=== PATIENT | female | born 1935 | race Caucasian/White ===

== ENCOUNTER 2019-11-15 18:35 | Emergency (ER) | payer MEDICARE ==
[2019-11-15 20:11] LABS: ALBUMIN 3.2 g/dL (3.5-5.0); ALKALINE PHOSPHATASE 61 U/L (38-126); ASPARTATE AMINO TRANSFERASE 42 U/L (14-36); BILIRUBIN,TOTAL 0.9 mg/dL (0.2-1.3); BLOOD UREA NITROGEN 12 mg/dL (7-20); CALCIUM 8.7 mg/dL (8.4-10.2); CARBON DIOXIDE 26 mmol/L (22-30); CHLORIDE 112 mmol/L (98-107); GLUCOSE 101 mg/dL (75-110); POTASSIUM 3.6 mmol/L (3.6-5.0); TOTAL PROTEIN 5.7 g/dL (6.3-8.2)
[2019-11-15 20:12] LABS: ABSOLUTE EOSINOPHILS # (AUTO) 0.1 10^3/uL (0.0-0.6); ABSOLUTE LYMPHOCYTES (AUTO) 1.2 10^3/uL (0.5-4.7); ABSOLUTE MONOCYTES (AUTO) 0.6 10^3/uL (0.1-1.4); ABSOLUTE NEUT (AUTO) 4.8 10^3/uL (1.7-8.2); BASOPHILS % (AUTO) 0.6 % (0-2); HEMATOCRIT 35.8 % (36.0-47.0); HEMOGLOBIN 12.2 g/dL (12.0-15.5); LYMPHOCYTES % (AUTO) 18.2 % (13-45); MEAN CORPUSCULAR HEMOGLOBIN 30.6 pg (27.0-33.4); MEAN CORPUSCULAR HGB CONC 34.1 g/dL (32.0-36.0); MEAN CORPUSCULAR VOLUME 90 fl (80-97); MONOCYTES % (AUTO) 9.3 % (3-13); PLATELET COUNT 243 10^3/uL (150-450); RED BLOOD COUNT 3.98 10^6/uL (3.72-5.28); RED CELL DISTRIBUTION WIDTH 14.6 % (11.5-14.0); SEGMENTED NEUTROPHILS % (AUTO) 70.9 % (42-78); TOTAL CELLS COUNTED % (AUTO) 100 %; WHITE BLOOD COUNT 6.7 10^3/uL (4.0-10.5)
[2019-11-15 20:17] LABS: ANION GAP 2 (5-19)
[2019-11-15] MEDS ORDERED: NORMAL SALINE 1000 ML 1,000 ML IV ONE (23:16)
--- NOTE | 2019-11-16 00:14 | RADIOLOGY REPORT (SQ) ---
CT of the head: 11/15/2019 11:12 PM CDT HISTORY: 83-year-old patient with altered mental status. COMPARISON: None available TECHNIQUE: Multiple axial contiguous images were obtained through the head without intravenous contrast administered. This exam was performed according to our departmental dose-optimization program, which includes automated exposure control, adjustment of the mA and/or KV according to the patient's size and/or use of iterative reconstruction technique. FINDINGS: The ventricles and cerebral sulci demonstrate mild prominence, consistent with cerebral atrophy. There are mild periventricular hypodensities, suggestive of periventricular white matter changes. The fragoso-white matter differentiation is within normal limits. Both orbits appear unremarkable. The mastoid air cells appear clear. The visualized paranasal sinuses appear clear. The calvarium is intact. No extra-axial fluid collection is seen. No midline shift or mass effect is apparent. There are no findings to suggest acute intracranial hemorrhage. IMPRESSION: 1. No acute intracranial hemorrhage is seen. 2. Mild cerebral atrophy and periventricular white matter changes are seen.
--- NOTE | 2019-11-16 00:15 | RADIOLOGY REPORT (SQ) ---
AP Portable chest: 11/15/2019 11:13 PM CDT History: 83-year old patient with altered mental status. Comparison: None available Findings: The cardiomediastinal silhouette is enlarged. No pneumothorax is seen. No discrete pleural effusion is apparent. There are airspace opacities seen within the left midlung and right lung base. Atherosclerotic calcifications are seen at the aortic arch. Impression: There are airspace opacities seen at the lung bases and left midlung. These may represent atelectasis or infection.
[2019-11-16 03:22] LABS: APPEARANCE,URINE CLOUDY; BILIRUBIN,URINE NEGATIVE (NEGATIVE); GLUCOSE, URINE NEGATIVE (NEGATIVE); KETONES,URINE 20 mg/dL (NEGATIVE); PROTEIN,URINE 30 mg/dL (NEGATIVE); URINE SPECIFIC GRAVITY 1.029; UROBILINOGEN,URINE NEGATIVE mg/dL (<2.0)
[2019-11-16 03:25] LABS: COLOR,URINE DARK YELLOW
[2019-11-16 03:34] LABS: URINE AMPHETAMINES SCREEN NEGATIVE; URINE BARBITURATES SCREEN NEGATIVE; URINE BENZODIAZEPINES SCREEN NEGATIVE; URINE COCAINE SCREEN NEGATIVE; URINE MARIJUANA (THC) SCREEN NEGATIVE; URINE METHADONE SCREEN NEGATIVE; URINE PHENCYCLIDINE SCREEN NEGATIVE
--- NOTE | 2019-11-16 08:06 | EKG REPORT ---
SEVERITY:- ABNORMAL ECG - ATRIAL FIBRILLATION, V-RATE 71-84 PROBABLE LEFT VENTRICULAR HYPERTROPHY BORDERLINE PROLONGED QT INTERVAL : Confirmed by: Jasmeet Felder 16-Nov-2019 08:06:01
--- NOTE | 2019-11-16 17:33 | ER Document Report ---
ED General - General Chief Complaint: Other Stated Complaint: WELLNESS CHECK Time Seen by Provider: 11/15/19 22:48 Mode of Arrival: Medic Information source: Patient, Emergency Med Personnel - [facility] Notes: Patient however when I see her. I was asked to see the patient in consultation. Patient has apparently been in the emergency department for several hours. She was apparently brought in in the middle the night due to neighbors being concerned. Apparently the neighbor stated that she does not have running water or electricity. They also state that they are concerned that patient does not have food. So they have been taking food over to her. Patient does appear confused and is not able to contribute significantly to her history. Patient denies any pain at this time. She denies any shortness of breath. She denies having any nausea. She does appear somewhat weak although this appears to be secondary to her advanced age and not any acute condition. - Related Data Allergies/Adverse Reactions: No Known Allergies Allergy (Unverified 11/16/19 02:00) Home Medications: Pt states take no meds Past Medical History - General Information source: Patient, Emergency Med Personnel - Social History Smoking Status: Never Smoker Chew tobacco use (# tins/day): No Frequency of alcohol use: None Drug Abuse: None Family History: Reviewed & Not Pertinent Patient has homicidal ideation: No - Past Medical History Cardiac Medical History: Reports: Hx Hypertension Review of Systems - Review of Systems -: Yes ROS unobtainable due to patient's medical condition - Review of symptoms not obtainable due to patient's confusion Physical Exam - Vital signs Vitals: Temp 99.0 F 11/15/19 18:51 Interpretation: Normal - General General appearance: Appears well, Alert In distress: None - HEENT Head: Normocephalic, Atraumatic Eyes: Normal Pupils: PERRL - Respiratory Respiratory status: No respiratory distress Chest status: Nontender Breath sounds: Normal Chest palpation: Normal - Cardiovascular Rhythm: Regular Heart sounds: Normal auscultation Murmur: No - Abdominal Inspection: Normal Distension: No distension Bowel sounds: Normal Tenderness: Nontender Organomegaly: No organomegaly - Back Back: Normal, Nontender - Extremities General upper extremity: Normal inspection, Nontender, Normal color, Normal ROM, Normal temperature General lower extremity: Nontender, Normal temperature, Other - Patient has bilateral 2+ pitting edema with some lymphedematous changes to the bilateral lower extremities. Changes appear chronic no evidence of acute infection.. No: Maddison's sign - Neurological Cognition: Confused Orientation: Disoriented to place, Disoriented to time Saucier Coma Scale Eye Opening: Spontaneous Saucier Coma Scale Verbal: Confused Milo Coma Scale Motor: Obeys Commands Saucier Coma Scale Total: 14 Speech: Normal Motor strength normal: LUE, RUE, LLE, RLE Sensory: Normal - Psychological Associated symptoms: Normal affect, Normal mood - Skin Skin Temperature: Warm Skin Moisture: Dry Skin Color: Other - Has bilateral erythema to the lower extremities consistent with chronic lymphedema. No acute changes. Course - Re-evaluation Re-evalutation: 11/16/19 17:33 Patient was brought in by ambulance due to neighbors being concerned about patient's welfare. Patient has no complaints at this time. Laboratories are unremarkable and imaging is unremarkable. Patient has ate here without problem she does appear to have some baseline confusion and dementia. A son has been contacted and is currently on his way from [place] to take the patient to live with him. The only abnormality I noticed this patient is in atrial fibrillation. She has no previous records her EKG here so I am unsure how acute this episode of atrial fibrillation is. Patient not able to tell me her medicines I am unsure if she is on a blood thinner. At this time it seems most prudent to start the patient on some oral Eliquis and I will relay this to the son and he can arrange for primary care and further evaluation of whether or not they would like to proceed with Eliquis once patient arrives in [place]. 11/16/19 17:34 - Vital Signs Vital signs: Temp Pulse Resp BP Pulse Ox 98.3 F 100 18 142/50 H 96 11/16/19 10:47 11/16/19 10:47 11/16/19 10:47 11/16/19 10:47 11/16/19 10:47 - Laboratory Result Diagrams: 11/15/19 19:43 11/15/19 19:43 Laboratory results interpreted by me: 11/15/19 11/15/19 11/16/19 19:43 19:43 03:05 Hct 35.8 L RDW 14.6 H Chloride 112 H Anion Gap 2 L AST 42 H Total Protein 5.7 L Albumin 3.2 L Urine Protein 30 H Urine Ketones 20 H Urine Ascorbic Acid 40 H - Diagnostic Test Radiology reviewed: Image reviewed, Reports reviewed - EKG Interpretation by Me Rate: Normal - 77 Rhythm: A.Fib Voltage: Consistant with [facility] Discharge - Discharge Clinical Impression: Encounter for medical screening examination, FTT (failure to thrive) in adult Atrial fibrillation Qualifiers: Atrial fibrillation type: unspecified Qualified Code(s): I48.91 - Unspecified atrial fibrillation Condition: Stable Disposition: HOME, SELF-CARE Instructions: Atrial Fibrillation ([facility]) Additional Instructions: Please contact a primary care physician as soon as possible for reevaluation. The patient has been started on a blood thinner as she is found to have an abnormal rhythm called atrial fibrillation. The blood thinner is given in order to prevent strokes. However the blood thinner does have a side effect of causing excessive bleeding and can cause increased trauma if she falls and hits her head. She has a higher risk of having a brain hemorrhage if she falls and hits her head while on the blood thinner. Therefore the risks and benefits of being on the blood thinner are going to have to be decided between you and your primary care physician. I have started her on the blood thinner here and you will need to decide with your primary care physician whether or not you want to continue with this therapy. Prescriptions: Apixaban [Eliquis 5 mg Tablet] 5 mg PO BID 30 Days #60 tablet
[2019-11-16] MEDS ORDERED: APIXABAN 5 MG TABLET PO ONE (17:41)
--- NOTE | 2019-11-17 18:23 | ER Document Report ---
Doctor's Note Notes: 11/17/19 18:22 Patient reevaluated. She is smiling and laughing. She is eating supper. She denies any complaints at this time. Heart is regular rate and rhythm. Lungs are clear to auscultation bilaterally. Skin is warm and dry. Abdomen is soft nontender nondistended.
--- NOTE | 2019-11-18 07:38 | ER Document Report ---
Doctor's Note Notes: 11/18/19 07:37 Patient reassessed this morning. She has no complaints. She is resting comfortably. She is making jokes currently. Heart is regular rate and rhythm. Lungs are clear bilaterally. Abdomen is soft nontender nondistended. Skin is warm and dry. Will recheck labs since labs have not been checked in 3 days.
[2019-11-18 12:24] VITALS: BP 147/69
== END 2019-11-18 12:24 | disposition home or self-care (01) ==
LOC: ER 18:35
DX: R62.7 Adult failure to thrive (principal); R41.0 Disorientation, unspecified; R60.0 Localized edema; L53.9 Erythematous condition, unspecified; Z59.1 Inadequate housing; I10 Essential (primary) hypertension; I48.91 Unspecified atrial fibrillation
CPT/HCPCS: 99285; 96360; 36415; 82962; 80307 ×2; 85025; 80053; 81001; 71045; 70450; 93005; 93010; J7030; A9270